=== PATIENT | female | born 1990 | race Caucasian/White ===

== ENCOUNTER 2017-11-06 15:09 | Emergency (ER) | payer SELFPAY ==
[~2017-11-06] VITALS: Ht 162.6 cm; Wt 72.6 kg
[2017-11-06] MEDS ORDERED: HYDROcodone/Acetamin 7.5/325 tab ORAL ONE (16:00)
[2017-11-06] MEDS ORDERED: Albuterol/Ipratropium 3ml neb HHN ONE (16:00)
[2017-11-06 16:34] VITALS: BP 119/81
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
[2017-11-06] MEDS ORDERED: LORazepam 1mg tab ORAL ONE (19:15)
[2017-11-06] MEDS ORDERED: IBUPROFEN600 MG ORAL (20:43)
[2017-11-06] MEDS ORDERED: LIDODERM700 M1 TOPIC (20:43)
[2017-11-06] MEDS ORDERED: ROBAXIN-750750 MG PO (20:43)
[2017-11-06] MEDS ORDERED: Ketorolac 60mg Inj IM ONE (21:15)
[2017-11-06] MEDS ORDERED: ALPRAZOLAM0.25 MG ORAL (21:37)
[2017-11-06 21:50] VITALS: BP 107/61
[2017-11-06 21:52] VITALS: BP 107/61
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
--- NOTE | 2017-11-07 11:17 | Diagnostic Imaging Report ---
Indication: Reason For Exam: PAIN Technique: 3 views of the cervical spine Comparison: none Findings: There is some reversal of the normal cervical lordosis. Otherwise normal bony alignment. No prevertebral soft tissue swelling. No acute fractures. No dislocations. Vertebral body heights are preserved. Disc spaces are preserved. Impression: Reversal of the normal cervical lordosis, probably on the basis of muscle spasm although posterior ligamentous injury not excludable No acute bony trauma
== END 2017-11-06 21:52 | disposition home or self-care (01) ==
LOC: EDBD 15:09 → EMR 17:50
DX: S16.1XXA Strain of muscle, fascia and tendon at neck level, initial encounter (principal); M54.5 Low back pain; M25.561 Pain in right knee; J45.909 Unspecified asthma, uncomplicated; V43.52XA Car driver injured in collision with other type car in traffic accident, initial encounter; Y92.410 Unspecified street and highway as the place of occurrence of the external cause
CPT/HCPCS: 72040; 72131; 81025; 94640; 94664; 96372; 99284; J7620